=== PATIENT | female | born 1975 ===

== ENCOUNTER 2020-03-24 01:06 | Observation (INO) | payer SELFPAY ==
[2020-03-24] MEDS ORDERED: MAGNESIUM SULFATE 2 GM/50 ML BAG IV ONE ×2 (01:09)
[2020-03-24] MEDS ORDERED: methylPREDNISolone Sod Succinate 125 MG/2 ML INJ IV ONE (01:09)
[2020-03-24] MEDS ORDERED: EPINEPHrine/PF 1 MG/1 ML INJ ONE (01:09)
[2020-03-24] MEDS ORDERED: ALBUTEROL 2.5 MG/3 ML NEBU IH ONE ×2 (01:09→01:19)
[2020-03-24] MEDS ORDERED: methylPREDNISolone Sod Succinate 125 MG/2 ML INJ ONE (01:09)
[2020-03-24] MEDS ORDERED: EPINEPHrine/PF 1 MG/1 ML INJ SUB-Q ONE (01:10)
[2020-03-24] MEDS ORDERED: EPINEPHrine RACEMIC 2.25% 0.5ML NEBU IH ONE ×2 (01:10)
[2020-03-24] MEDS ORDERED: IPRATROPIUM/ALBUTEROL SULFATE 3 ML AMPUL.NEB IH ONE ×2 (01:10)
[2020-03-24] MEDS ORDERED: IPRATROPIUM 0.02% NEBU 2.5 ML IH ONE ×2 (01:10→01:19)
--- NOTE | 2020-03-24 01:14 | Emergency Department Report ---
ED Shortness of Breath HPI - General Chief Complaint: Dyspnea/Respdistress Stated Complaint: DIFFICULTY BREATHING Time Seen by Provider: 03/24/20 01:06 Source: patient Mode of arrival: Ambulatory Limitations: No Limitations - History of Present Illness Initial Comments: Patient is a 44-year-old female who presents emergency room with complaints of difficulty breathing and shortness of breath. Patient states that her shortness of breath started 3 days ago. Patient states that her difficulty in breathing started just prior to arrival. Patient states she has asthma. Patient states that she has been using her inhaler several times a day. Patient states she cannot breathe at all. Patient states she feels like her throat is closing off. Patient states her symptoms are better with rest and worse with exertion. Patient denies chest pain. Patient does not recall being exposed to an allergen. MD Complaint: shortness of breath, "asthma attack", anxiety -: Sudden Severity: severe Consistency: constant Improves With: rest, bronchodilators, upright position Worsens With: exertion Known History Of: asthma Associated Symptoms: cough Treatments Prior to Arrival: bronchodilator - Related Data Home Oxygen Therapy: No Allergies Allergy/AdvReac Type Severity Reaction Status Date / Time No Known Allergies Allergy Verified 03/24/20 03:50 ED Review of Systems ROS: Stated complaint: DIFFICULTY BREATHING Other details as noted in HPI Constitutional: denies: chills, fever Eyes: denies: eye pain, eye discharge, vision change ENT: denies: ear pain, throat pain Respiratory: cough, shortness of breath, SOB with exertion, SOB at rest, wheezing Cardiovascular: denies: chest pain, palpitations Endocrine: no symptoms reported Gastrointestinal: denies: abdominal pain, nausea, diarrhea Genitourinary: denies: urgency, dysuria, discharge Musculoskeletal: denies: back pain, joint swelling, arthralgia Skin: denies: rash, lesions Neurological: denies: headache, weakness, paresthesias Psychiatric: denies: anxiety, depression Hematological/Lymphatic: denies: easy bleeding, easy bruising ED Past Medical Hx - Past Medical History Previous Medical History?: Yes Hx Asthma: Yes - Surgical History Past Surgical History?: No - Family History Family history: no significant - Social History Smoking Status: Never Smoker Substance Use Type: None ED Physical Exam - General Limitations: No Limitations General appearance: alert, in distress - Head Head exam: Present: atraumatic, normocephalic - Eye Eye exam: Present: normal appearance - ENT ENT exam: Present: mucous membranes moist - Neck Neck exam: Present: normal inspection - Respiratory Respiratory exam: Present: normal lung sounds bilaterally, respiratory distress, stridor, accessory muscle use, decreased breath sounds - Cardiovascular Cardiovascular Exam: Present: regular rate, normal rhythm. Absent: systolic murmur, diastolic murmur, rubs, gallop - GI/Abdominal GI/Abdominal exam: Present: soft, normal bowel sounds. Absent: distended, tenderness, guarding - Extremities Exam Extremities exam: Present: normal inspection - Back Exam Back exam: Present: normal inspection - Neurological Exam Neurological exam: Present: alert, oriented X3 - Psychiatric Psychiatric exam: Present: normal affect, normal mood - Skin Skin exam: Present: warm, dry, intact, normal color. Absent: rash ED Course Vital Signs 03/24/20 03/24/20 03/24/20 01:08 01:11 01:16 Temperature Pulse Rate 102 H 99 H Pulse Rate [ Bilateral Throughout] Respiratory 34 H 17 Rate Respiratory Rate [Bilateral Throughout] Blood Pressure 135/80 135/80 Blood Pressure [Left] O2 Sat by Pulse 100 98 100 Oximetry 03/24/20 03/24/20 03/24/20 01:18 01:30 01:45 Temperature Pulse Rate 99 H 97 H Pulse Rate [ 100 H Bilateral Throughout] Respiratory 14 14 Rate Respiratory 15 Rate [Bilateral Throughout] Blood Pressure 151/84 134/72 Blood Pressure [Left] O2 Sat by Pulse 99 99 Oximetry 03/24/20 03/24/20 03/24/20 01:48 02:00 02:15 Temperature Pulse Rate 104 H 102 H Pulse Rate [ 98 H Bilateral Throughout] Respiratory 16 18 Rate Respiratory 13 Rate [Bilateral Throughout] Blood Pressure 117/69 117/69 Blood Pressure [Left] O2 Sat by Pulse 99 99 Oximetry 03/24/20 03/24/20 03/24/20 02:30 02:45 03:00 Temperature Pulse Rate 101 H 96 H 102 H Pulse Rate [ Bilateral Throughout] Respiratory 16 16 17 Rate Respiratory Rate [Bilateral Throughout] Blood Pressure 123/64 126/63 125/57 Blood Pressure [Left] O2 Sat by Pulse 99 98 99 Oximetry 03/24/20 03/24/20 03/24/20 03:15 03:30 03:45 Temperature Pulse Rate 99 H 102 H 102 H Pulse Rate [ Bilateral Throughout] Respiratory 16 17 14 Rate Respiratory Rate [Bilateral Throughout] Blood Pressure 113/66 114/63 105/69 Blood Pressure [Left] O2 Sat by Pulse 98 98 98 Oximetry 03/24/20 03/24/20 03/24/20 04:00 04:30 04:51 Temperature Pulse Rate 102 H 105 H Pulse Rate [ Bilateral Throughout] Respiratory 18 18 Rate Respiratory Rate [Bilateral Throughout] Blood Pressure 126/69 95/53 130/78 Blood Pressure [Left] O2 Sat by Pulse 98 98 Oximetry 03/24/20 03/24/20 05:00 05:23 Temperature 98.0 F Pulse Rate 101 H 90 Pulse Rate [ Bilateral Throughout] Respiratory 10 L 15 Rate Respiratory Rate [Bilateral Throughout] Blood Pressure 130/78 Blood Pressure 110/75 [Left] O2 Sat by Pulse 97 100 Oximetry - Reevaluation(s) Reevaluation #1: Initial evaluation done. Patient will be given Solu-Medrol, epinephrine, magnesium, DuoNeb. Patient is having extreme work to breathe and severe stridor and wheezes. 03/24/20 01:06 Reevaluation #2: Patient stridor has resolved. Patient's lung sounds have improved. Patient's work to breathe has improved. 03/24/20 02:04 Reevaluation #3: I discussed all results with patient. I discussed plan of care with patient. Patient agrees with plan of care and admission. Patient to be admitted to the hospitalist service. 03/24/20 02:33 - Consultations Consultation #1: Hospitalist consulted for admission. Hospitalist to admit patient. 03/24/20 02:34 ED Medical Decision Making - Lab Data Result diagrams: 03/24/20 01:16 03/24/20 01:16 - Radiology Data Radiology results: report reviewed CHEST 1 VIEW, 03/24/2020 1:10 AM CLINICAL INFORMATION/INDICATION: Shortness of breath COMPARISON: None FINDINGS: SUPPORT DEVICES: None. HEART: The cardiac silhouette is normal in size. LUNGS/PLEURA: The lungs are clear of focal airspace disease or significant pleural effusion. ADDITIONAL FINDINGS: No additional acute findings. IMPRESSION: 1. No evidence of acute cardiopulmonary process. - Medical Decision Making Patient is a 44-year-old female that presents emergency room with complaints of difficulty breathing and shortness of breath. Patient's difficulty breathing started just prior to arrival. On initial evaluation the patient found to have mild upper airway wheezing and a silent chest as well as stridor in her neck. Patient was given Solu-Medrol, mag, epinephrine, albuterol and Atrovent and racemic epinephrine in order to control her symptoms. Patient responded well to treatment. Patient's lung sounds improved. Patient stridor resolved with therapy. Patient placed on 2 L via nasal cannula for oxygen support. Patient had labs done and a chest x-ray done. Patient's labs are essentially unremarkable. Patient chest x-ray is negative for acute findings. Patient will be admitted to the hospitalist service for further evaluation and observation. - Differential Diagnosis Respiratory distress, stridor, status asthmaticus, anaphylaxis,sob Critical Care Time: Yes Critical care time in (mins) excluding proc time.: 35 Critical care attestation.: If time is entered above; I have spent that time in minutes in the direct care of this critically ill patient, excluding procedure time. Critical Care Time: 35 minutes ED Disposition Clinical Impression: Respiratory distress, Stridor Anaphylactic reaction Qualifiers: Encounter type: initial encounter Qualified Code(s): T78.2XXA - Anaphylactic shock, unspecified, initial encounter Status asthmaticus Qualifiers: Asthma severity: unspecified severity Asthma persistence: unspecified Qualified Code(s): J45.902 - Unspecified asthma with status asthmaticus Disposition: 09 OP ADMIT IP TO THIS HOSP Is pt being admited?: Yes Does the pt Need Aspirin: No Condition: Critical Time of Disposition: 02:39
--- NOTE | 2020-03-24 01:34 | XRay Report ---
CHEST 1 VIEW, 03/24/2020 1:10 AM CLINICAL INFORMATION/INDICATION: Shortness of breath COMPARISON: None FINDINGS: SUPPORT DEVICES: None. HEART: The cardiac silhouette is normal in size. LUNGS/PLEURA: The lungs are clear of focal airspace disease or significant pleural effusion. ADDITIONAL FINDINGS: No additional acute findings. IMPRESSION: 1. No evidence of acute cardiopulmonary process. Signer Name: Laurie Llamas MD Signed: 03/24/2020 1:30 AM Workstation Name: [id number]
[2020-03-24 01:49] LABS: Alanine Aminotransferase 13 units/L (7-56); Albumin 4.2 g/dL (3.9-5); BUN/Creatinine Ratio 28; Blood Urea Nitrogen 22 mg/dL (7-17); Calcium 8.9 mg/dL (8.4-10.2); Hemolysis Index 2
[2020-03-24 02:15] LABS: Basophils % (Auto) 0.4 % (0.0-1.8); Eosinophils # (Auto) 0.2 K/mm3 (0.0-0.4); Eosinophils % (Auto) 1.2 % (0.0-4.3); Hematocrit 38.8 % (30.3-42.9); Hemoglobin 12.8 gm/dl (10.1-14.3); Lymphocytes # (Auto) 3.4 K/mm3 (1.2-5.4); Lymphocytes % (Auto) 25.4 % (13.4-35.0); Mean Corpuscular HGB Conc 33 % (30-34); Mean Corpuscular Volume 84 fl (79-97); Monocytes % (Auto) 7.1 % (0.0-7.3); Platelet Count 308 K/mm3 (140-440); Red Cell Distribution Width 14.6 % (13.2-15.2)
[2020-03-24] MEDS ORDERED: ONDANSETRON 4 MG/2 ML INJ IV PRN (03:46)
[2020-03-24] MEDS ORDERED: ACETAMINOPHEN 325 MG TAB PO PRN (03:46)
--- NOTE | 2020-03-24 03:56 | History and Physical Report ---
History of Present Illness History of present illness: 44-year-old woman with a history of asthma comes emergency room for evaluation. Over the last 3 days she has been having shortness of breath, dry cough not relieved with her nebulizer treatments. Her symptoms worsened today so she came for further care, also stated that her throat felt as if it was closing off. Patient received receiving epi, nebulizer treatments and steroids. She will be admitted for asthma exacerbation Review Of Systems: Constitutional: no weight loss, fever, chills Ears, eyes, nose, mouth and throat: no nasal congestion, no nasal discharge, no sinus pressure, blurry vision, diplopia Neck: No neck pain or rigidity. Cardiovascular: No palpitations, chest pain Respiratory: + shortness of breath, cough Gastrointestinal: No hematochezia Genitourinary : no dysuria, frequency Musculoskeletal: no muscle ache , joint pain Integumentary: no rash, no pruritis Neurological: no parathesias, focal weakness Endocrine: no cold or heat intolerance, no polyuria or polydipsia Hematologic/Lymphatic: no easy bruising, no easy bleeding, no gland swelling Allergic/Immunologic: no urticaria, no angioedema. PAST MEDICAL HISTORY: Asthma PAST SURGICAL HISTORY: Jaw SOCIAL HISTORY: Denies alcohol, drugs, smokes a pack a day FAMILY HISTORY: Hypertension Medications and Allergies Allergies Allergy/AdvReac Type Severity Reaction Status Date / Time No Known Allergies Allergy Verified 03/24/20 03:50 Active Meds: Active Medications Acetaminophen (Tylenol) 650 mg PO Q4H PRN PRN Reason: Pain MILD(1-3)/Fever >100.5/SCHULTZ Albuterol/Ipratropium (Duoneb *Not For Prn Use*) 1 ampul IH Q6HRT [facility] Enoxaparin Sodium (Enoxaparin) 30 mg SUB-Q QDAY [facility] Sodium Chloride (Nacl 0.9% 1000 Ml) 1,000 mls @ 75 mls/hr IV DIRECT [facility] Ondansetron HCl (Zofran) 4 mg IV Q8H PRN PRN Reason: Nausea And Vomiting Sodium Chloride (Sodium Chloride Flush Syringe 10 Ml) 10 ml IV BID JESIKA Sodium Chloride (Sodium Chloride Flush Syringe 10 Ml) 10 ml IV PRN PRN PRN Reason: LINE FLUSH Exam - Physical Exam Narrative exam: Gen. appearance: Patient lying in bed, no apparent distress HEENT: Normocephalic, atraumatic, pupils equally round and reactive to light, extraocular movement intact, and no sclericterus,. No JVD or thyromegaly or nodule,neck supple, no carotid bruit ,mucous membranes moist, no exudate or erythema Heart: S1, S2, regular rate and rhythm Lungs: Decreased air entry bilaterally, breathing comfortable Abdomen: Positive bowel sounds, nontender, nondistended, no organomegaly Extremity: no edema, cyanosis, clubbing Skin: No rash, nodules, warm, dry Neuro: Cranial nerves II to XII intact, speech is fluent, moves extremities, sensory intact - Constitutional Vitals: Temp Pulse Resp BP Pulse Ox 99 H 16 113/66 98 03/24/20 03:15 03/24/20 03:15 03/24/20 03:15 03/24/20 03:15 Results - Labs CBC & Chem 7: 03/24/20 01:16 03/24/20 01:16 Labs: Abnormal lab results 03/24/20 03/24/20 Range/Units 01:16 01:16 WBC 13.4 H (4.5-11.0) K/mm3 [place] # 1.0 H (0.0-0.8) K/mm3 Seg Neutrophils # 8.9 H (1.8-7.7) K/mm3 BUN 22 H (7-17) mg/dL - Imaging and Cardiology Chest x-ray: report reviewed Assessment and Plan Assessment Asthma exacerbation Start high-dose steroids, nebulizer treatments Monitor throat symptoms, currently stable DVT prophylaxis
[2020-03-24] MEDS ORDERED: SODIUM CHLORIDE 0.9% 1000 ML 1,000 ML ONE (05:01)
[2020-03-24] MEDS: SODIUM CHLORIDE 0.9% 1000 ML 1,000 ML IV SCH ×2 (05:07→18:27)
[2020-03-24] MEDS: methylPREDNISolone Sod Succinate 125 MG/2 ML INJ IV SCH ×4 (06:16→21:56)
[2020-03-24] MEDS: IPRATROPIUM/ALBUTEROL SULFATE 3 ML AMPUL.NEB IH SCH ×3 (07:38→20:57)
[2020-03-24] MEDS: ENOXAPARIN 40 MG/0.4 ML INJ SUB-Q SCH (09:49)
[2020-03-24] MEDS ORDERED: ENOXAPARIN 30 MG/0.3 ML INJ SUB-Q SCH (10:00)
--- NOTE | 2020-03-24 10:28 | Event Note ---
Date: 03/24/20 Patient was admitted early this morning with h/o acute respiratory failure associated with stridor Requiring multiple doses of epinephrine, high-dose of steroids and nebulizers. Admitted for acute exacerbation of bronchial asthma I have seen and examined the patient at bedside in IMCU Patient feels much better, saturating well room air, however is fidgety And restless Vital signs reviewed Lungs bilateral air entry good, occasional wheeze Agree with the current management Closely monitor 24 hours Discharge tomorrow if stable Plan of care reviewed with the patient and her nurse Patient can be transferred out of IMCU to telemetry/medical floor
[2020-03-25] MEDS: IPRATROPIUM/ALBUTEROL SULFATE 3 ML AMPUL.NEB IH SCH ×2 (02:21→07:29)
[2020-03-25] MEDS ORDERED: FAMOTIDINE 20 MG TAB PO ONE (04:00)
[2020-03-25] MEDS: methylPREDNISolone Sod Succinate 125 MG/2 ML INJ IV SCH (05:27)
[2020-03-25] MEDS: SODIUM CHLORIDE 0.9% 1000 ML 1,000 ML IV SCH (05:27)
[2020-03-25 07:00] LABS: Hematocrit 36.8 % (30.3-42.9); Hemoglobin 12.1 gm/dl (10.1-14.3); Mean Corpuscular HGB Conc 33 % (30-34); Mean Corpuscular Volume 84 fl (79-97); Platelet Count 293 K/mm3 (140-440); Red Blood Count 4.38 M/mm3 (3.65-5.03); Red Cell Distribution Width 14.5 % (13.2-15.2)
[2020-03-25 07:15] LABS: BUN/Creatinine Ratio 29; Blood Urea Nitrogen 20 mg/dL (7-17); Calcium 8.8 mg/dL (8.4-10.2); Hemolysis Index 8
[2020-03-25] MEDS: ENOXAPARIN 40 MG/0.4 ML INJ SUB-Q SCH (09:57)
[2020-03-25] MEDS ORDERED: methylPREDNISolone Sod Succinate 125 MG/2 ML INJ IV SCH (10:00)
[2020-03-25 10:54] LABS: Anisocytosis 1+; Basophils % (Manual) 0 % (0.0-1.8); Eosinophils % (Manual) 0 % (0.0-4.3); Platelet Estimate Consistent w Auto; Total Cells Counted 200
--- NOTE | 2020-03-25 11:45 | Discharge Summary ---
Providers - Providers Date of Admission: 03/24/20 04:44 Date of discharge: 03/25/20 Attending physician: MICKEY PENA Primary care physician: BLOCK SEALER Hospitalization Reason for admission: Acute hypoxic respiratory failure, bronchospasm, bronchial asthma Condition: Fair Pertinent studies: Chest x-ray Hospital course: 44-year-old female patient t presented to the emergency room with complaints of difficulty breathing and shortness of breath. Patient's difficulty breathing started just prior to arrival. On initial evaluation the patient found to have mild upper airway wheezing and a silent chest as well as stridor in her neck. Patient was given Solu-Medrol, mag, epinephrine, albuterol and Atrovent and racemic epinephrine in order to control her symptoms. Patient responded well to treatment. Patient's lung sounds improved. Patient stridor resolved with therapy. Patient placed on 2 L via nasal cannula for oxygen support. Patient had labs done and a chest x-ray done. Patient's labs are essentially unremarkable. Patient chest x-ray is negative for acute findings. Patient was admitted For close observation, treated with nebulizers, high-dose IV steroids and oxygen Patient symptoms significantly improved, smoking cessation counseling done, advised nicotine patch as needed Today patient is comfortable no new complaints, very minimal wheeze Not in acute distress, vital signs reviewed Physical examination is unremarkable Patient is hemodynamically and clinically stable Discharged with tapering dose of steroids and albuterol inhalers as well as nicotine patch Patient is stable at discharge Discharge diagnosis; --Acute hypoxic respiratory failure; Resolved, patient is saturating 100% room air --Acute bronchospasm; present on admission received epinephrine bronchodilators oxygen Significantly improved --Acute bronchial asthma attack; improved --Ongoing tobacco use; smoking cessation Advised nicotine patch as needed Stable at discharge Follow-up with primary care physician Private jive developer If continues to have stridor-like symptoms Advised to see private ENT physician No ENT services in the hospital Disposition: DC-01 TO HOME OR SELFCARE Time spent for discharge: 32 min Core Measure Documentation - Palliative Care Palliative Care/ Comfort Measures: Not Applicable - Core Measures Any of the following diagnoses?: none Exam - Constitutional Vitals: Temp Pulse Resp BP Pulse Ox 98.1 F 89 18 135/78 96 03/25/20 08:20 03/25/20 10:00 03/25/20 10:00 03/25/20 09:56 03/25/20 10:00 General appearance: Present: no acute distress, well-nourished - EENT Eyes: Present: PERRL, EOM intact - Neck Neck: Present: supple, normal ROM - Respiratory Respiratory effort: normal Respiratory: bilateral: diminished, negative: rales, rhonchi, wheezing - Cardiovascular Rhythm: regular Heart Sounds: Present: S1 & S2 - Extremities Extremities: no ischemia, No edema - Abdominal General gastrointestinal: Present: soft, non-tender, non-distended, normal bowel sounds - Integumentary Integumentary: Present: clear, warm - Musculoskeletal Musculoskeletal: strength equal bilaterally - Psychiatric Psychiatric: appropriate mood/affect, cooperative - Neurologic Neurologic: moves all extremities Plan Activity: no restrictions Diet: regular Additional Instructions: Advised to see private ENT/pulmonary physician for further evaluation and management. Smoking cessation advised. If you have worsening symptoms contact MD or go to emergency room Follow up with: PRIMARY CARE,MD [Primary Care Provider] - 7 Days Prescriptions: predniSONE [Deltasone] 10 mg PO QDAY #15 tab Nicotine [Habitrol] 14 mg TD DAILY #30 patch Albuterol INH(or & Nicu Only) [ProAir HFA Inhaler] 2 puff IH QID PRN #8.5 gram PRN Reason: Shortness Of Breath
[2020-03-25 12:35] VITALS: BP 123/69
[2020-03-25] MEDS ORDERED: methylPREDNISolone Sod Succinate 40 MG/1 ML INJ IV SCH (18:00)
== END 2020-03-25 12:16 | disposition home or self-care (01) ==
LOC: ED 01:06 → IMCU 04:44 → INTOOBSV 04:44 → 4A 17:32
PROVIDERS: ADMIT Internal Medicine; ATTEND Internal Medicine
DX: J45.901 Unspecified asthma with (acute) exacerbation (principal); J96.01 Acute respiratory failure with hypoxia; J45.902 Unspecified asthma with status asthmaticus; T78.2XXA Anaphylactic shock, unspecified, initial encounter; F17.200 Nicotine dependence, unspecified, uncomplicated; Z79.51 Long term (current) use of inhaled steroids; Z79.899 Other long term (current) drug therapy; X58.XXXA Exposure to other specified factors, initial encounter; Y93.89 Activity, other specified; Y92.89 Other specified places as the place of occurrence of the external cause
CPT/HCPCS: 36415; 71045; 80048; 80053; 82140; 85007; 85025; 94640; 94644; 96365; 96372; 96375; 96376; 99291; G0378; J0171; J1650; J2405; J2930; J3475; J7030